=== PATIENT | male | born 1965 | race Caucasian/White ===

== ENCOUNTER 2017-07-19 16:08 | Emergency (ER) | payer BC, OTHER ==
--- NOTE | 2017-07-19 17:17 | UC ---
Respiratory Complaint HPI - HPI Summary HPI Summary: 51 yo male with cough and wheeze x 5 days some nasal congestion and post nasal drip as well ? fever chills no CP or SOB - History of Current Complaint Chief Complaint: UCRespiratory Stated Complaint: CHEST CONGESTION Time Seen by Provider: 07/19/17 17:06 Hx Obtained From: Patient Onset/Duration: Gradual Onset, Lasting Days Timing: Constant Severity Initially: Mild Severity Currently: Moderate Pain Intensity: 2 Pain Scale Used: 0-10 Numeric Character: Cough: Productive Aggravating Factors: Deep Breaths Alleviating Factors: Nothing Associated Signs And Symptoms: Positive: Wheezing, Nasal Congestion Related History: Similar Episode/Dx as: - bronchitis - Allergies/Home Medications Allergies/Adverse Reactions: Allergies Allergy/AdvReac Type Severity Reaction Status Date / Time No Known Allergies Allergy Verified 07/19/17 17:08 PMH/Surg Hx/FS Hx/Imm Hx Previously Healthy: Yes Cardiovascular History: Other Other Cardiovascular History: SVT Respiratory History: Bronchitis Neurological History: Other Other Neurological History: cluster CURRY - Surgical History Surgical History: Yes Surgery Procedure, Year, and Place: left ACL surgery - Family History Known Family History: Positive: Cardiac Disease, Hypertension - Social History Alcohol Use: None Alcohol Amount: x 6 months Substance Use Type: None Smoking Status (MU): Heavy Every Day Tobacco Smoker Type: Cigarettes Amount Used/How Often: 5 cig. day Review of Systems Constitutional: Negative Skin: Negative Eyes: Negative ENT: Nasal Discharge, Sinus Congestion Respiratory: Cough Cardiovascular: Negative Gastrointestinal: Negative Genitourinary: Negative Motor: Negative Neurovascular: Negative Musculoskeletal: Negative Neurological: Negative Psychological: Negative Is Patient Immunocompromised?: No All Other Systems Reviewed And Are Negative: Yes Physical Exam Triage Information Reviewed: Yes Appearance: Well-Appearing, No Pain Distress, Well-Nourished Vital Signs: Initial Vital Signs Temp 98.6 F 07/19/17 17:05 Pulse 72 07/19/17 17:05 Resp 16 07/19/17 17:05 BP 145/84 07/19/17 17:05 Pulse Ox 100 07/19/17 17:05 Vital Signs Reviewed: Yes Eyes: Positive: Conjunctiva Clear ENT: Positive: Hearing grossly normal, TMs normal. Negative: Nasal congestion, Nasal drainage, Trismus Neck: Positive: Supple, Nontender, No Lymphadenopathy Respiratory: Positive: No respiratory distress, No accessory muscle use, Wheezing Cardiovascular: Positive: RRR, No Murmur Musculoskeletal: Positive: ROM Intact, No Edema Neurological: Positive: Alert Psychological Exam: Normal Skin Exam: Normal UC Diagnostic Evaluation - Laboratory O2 Sat by Pulse Oximetry: 100 - n ormal/not hypoxic Respiratory Course/Dx - Differential Dx/Diagnosis Provider Diagnoses: acute bronchitis with bronchospasm Discharge - Discharge Plan Condition: Stable Disposition: HOME Prescriptions: Azithromycin TAB* [Zithromax TAB*] 250 mg PO DAILY #6 tab Benzonatate CAP* [Tessalon CAP*] 100 - 200 mg PO TID PRN #28 cap PRN Reason: Cough Patient Education Materials: Acute Bronchitis (ED), Bronchospasm (ED) Referrals: Greg Merrill MD [Primary Care Provider] - 4 Days (if not better) Additional Instructions: use inhaler as directed recheck for worsening symptoms recheck in about 4 days if not better
[2017-07-19] MEDS: Albuterol HFA INHALER* 8 gm MDI INH ONE (17:37)
[2017-07-19 17:44] VITALS: BP 145/84
== END 2017-07-19 17:48 | disposition home or self-care (01) ==
LOC: UCCORT 16:08
DX: J20.9 Acute bronchitis, unspecified (principal); F17.210 Nicotine dependence, cigarettes, uncomplicated
CPT/HCPCS: 99212; A9270-GY; G0463

== ENCOUNTER 2017-09-17 18:10 | Emergency (ER) | payer BC, OTHER ==
[2017-09-17 18:53] VITALS: BP 115/79
--- NOTE | 2017-09-17 21:00 | UC ---
Throat Pain/Nasal Sampson HPI - HPI Summary HPI Summary: ONE WEEK OF STUFFY NOSE, THREE DAYS OF WORSENING COUGH. YESTERDAY HAD BLOODY NOSE, RESOLVED TODAY. - History of Current Complaint Chief Complaint: UCRespiratory Stated Complaint: COUGH,CONGESTION Time Seen by Provider: 09/17/17 19:56 Hx Obtained From: Patient Onset/Duration: Gradual Onset, Lasting Days, Still Present Severity: Moderate Pain Intensity: 0 Pain Scale Used: 0-10 Numeric Cough: Nonproductive Associated Signs & Symptoms: Positive: Sinus Discomfort, Nasal Discharge - Epiglottits Risk Factors Epiglottis Risk Factors: Negative - Allergies/Home Medications Allergies/Adverse Reactions: Allergies Allergy/AdvReac Type Severity Reaction Status Date / Time No Known Allergies Allergy Verified 09/17/17 18:53 PMH/Surg Hx/FS Hx/Imm Hx Previously Healthy: Yes - Surgical History Surgical History: Yes Surgery Procedure, Year, and Place: left ACL surgery - Family History Known Family History: Positive: Cardiac Disease, Hypertension - Social History Occupation: Employed Full-time Lives: With Family Alcohol Use: None Alcohol Amount: x 6 months Substance Use Type: None Smoking Status (MU): Heavy Every Day Tobacco Smoker Type: Cigarettes Amount Used/How Often: 5 cig. day Cessation Counseling: Patient Advised to Stop Review of Systems Constitutional: Chills, Fatigue Skin: Negative Eyes: Negative ENT: Sore Throat, Nasal Discharge, Sinus Congestion, Sinus Pain/Tenderness Respiratory: Cough Cardiovascular: Negative Gastrointestinal: Negative Genitourinary: Negative Motor: Negative Neurovascular: Negative Musculoskeletal: Negative Neurological: Negative Psychological: Negative Is Patient Immunocompromised?: No All Other Systems Reviewed And Are Negative: Yes Physical Exam Triage Information Reviewed: Yes Appearance: No Pain Distress, Well-Nourished Vital Signs: Initial Vital Signs Temp 99.0 F 09/17/17 18:50 Pulse 66 09/17/17 18:50 Resp 17 09/17/17 18:50 BP 115/79 09/17/17 18:50 Pulse Ox 96 09/17/17 18:50 Vital Signs Reviewed: Yes Eye Exam: Normal ENT: Positive: Pharynx normal, Nasal congestion, TM bulging, TM dull Dental Exam: Normal Neck exam: Normal Neck: Positive: Supple, Nontender, No Lymphadenopathy Respiratory Exam: Other - COUGH Respiratory: Positive: Chest non-tender, Lungs clear, Normal breath sounds, No respiratory distress, No accessory muscle use Cardiovascular Exam: Normal Cardiovascular: Positive: RRR, No Murmur, Pulses Normal, Brisk Capillary Refill Abdominal Exam: Normal Abdomen Description: Positive: Nontender, No Organomegaly Musculoskeletal Exam: Normal Musculoskeletal: Positive: Strength Intact Neurological Exam: Normal Psychological Exam: Normal Skin Exam: Normal Throat Pain/Nasal Course/Dx - Differential Dx/Diagnosis Differential Diagnosis/HQI/PQRI: Pharyngitis, Sinusitis, Tonsillitis, URI Provider Diagnoses: SINUSITIS; BRONCHITIS Discharge - Discharge Plan Condition: Stable Disposition: HOME Prescriptions: Albuterol HFA INHALER* [Ventolin HFA Inhaler*] 1 - 2 puff INH Q6H PRN #1 mdi PRN Reason: Wheezing Benzonatate CAP* [Tessalon 100 MG CAP*] 100 mg PO TID PRN #12 cap PRN Reason: Cough DOXYcycline CAP(*) [DOXYcycline 100MG CAP(*)] 100 mg PO BID #20 cap Patient Education Materials: Sinusitis (ED), Acute Bronchitis (ED) Forms: *Work Release Referrals: Greg Merrill MD [Primary Care Provider] -
== END 2017-09-17 20:17 | disposition home or self-care (01) ==
LOC: UCCORT 18:10
DX: J32.9 Chronic sinusitis, unspecified (principal); J40 Bronchitis, not specified as acute or chronic; F17.210 Nicotine dependence, cigarettes, uncomplicated
CPT/HCPCS: 99212; G0463

== ENCOUNTER 2018-10-20 14:25 | Emergency (ER) | payer OTHER ==
[2018-10-20 15:00] VITALS: BP 123/70
--- NOTE | 2018-10-20 15:10 | ED ---
Throat Pain/Nasal Congestion - HPI Summary HPI Summary: 52 yr old with 2-3 days of sinus congestion, pressure, post nasal drip, coughing. Onset of symptoms 2-3 days ago. The patient complains of tightness in his chest with coughing episodes. He states in the past he has felt the same way when he has gotten upper respiratory infections. He denies fever, chills. He is coughing up yellow sputum. - History of Current Complaint Chief Complaint: UCGeneralIllness Time Seen by Provider: 10/20/18 14:55 - Allergies/Home Medications Allergies/Adverse Reactions: Allergies Allergy/AdvReac Type Severity Reaction Status Date / Time No Known Allergies Allergy Verified 09/17/17 18:53 Home Medications: Home Medications Ibuprofen TAB* [Advil TAB*] 400 mg PO Q6H PRN 10/20/18 [History Confirmed ] guaiFENesin ER TAB [Mucinex*] 1,200 mg PO BID PRN 10/20/18 [History Confirmed ] PMH/Surg Hx/FS Hx/Imm Hx Endocrine/Hematology History: Denies: Hx Diabetes, Hx Thyroid Disease Cardiovascular History: Reports: Hx Hypertension Respiratory History: Denies: Hx Asthma, Hx Chronic Obstructive Pulmonary Disease (COPD) - Surgical History Surgery Procedure, Year, and Place: left ACL surgery Infectious Disease History: No Infectious Disease History: Denies: Hx Hepatitis, History Other Infectious Disease, Traveled Outside the in Last 30 Days - Family History Known Family History: Positive: Cardiac Disease, Hypertension - Social History Alcohol Use: None Alcohol Amount: x 6 months Substance Use Type: Reports: None Smoking Status (MU): Heavy Every Day Tobacco Smoker Type: Cigarettes Amount Used/How Often: 1/2 pack/day Length of Time of Smoking/Using Tobacco: 30 yrs Review of Systems Constitutional: Negative Positive: Nasal Discharge, Other - sinus pressure, post nasal drip. Positive: Cough All Other Systems Reviewed And Are Negative: Yes Physical Exam Triage Information Reviewed: Yes Vital Signs On Initial Exam: Initial Vitals Temp Pulse Resp BP Pulse Ox 99.7 F 77 17 123/70 98 10/20/18 14:47 10/20/18 14:47 10/20/18 14:47 10/20/18 14:47 10/20/18 14:47 Vital Signs Reviewed: Yes Appearance: Positive: Well-Appearing, No Pain Distress Skin: Positive: Warm, Skin Color Reflects Adequate Perfusion Head/Face: Positive: Normal Head/Face Inspection Eyes: Positive: EOMI ENT: Positive: Normal ENT inspection, Nasal congestion, Nasal drainage, TMs normal, Hoarse voice - mild hoarse voice, Sinus tenderness Neck: Positive: Supple, Nontender Respiratory/Lung Sounds: Positive: Clear to Auscultation, Breath Sounds Present Cardiovascular: Positive: RRR. Negative: Murmur Abdomen Description: Negative: Distended Musculoskeletal: Positive: Strength/ROM Intact Neurological: Positive: Sensory/Motor Intact, Alert, Oriented to Person Place, Time, CN Intact II-III, Normal Gait, Speech Normal Psychiatric: Positive: Normal Diagnostics - Vital Signs Vital Signs Temp Pulse Resp BP Pulse Ox 10/20/18 14:47 99.7 F 77 17 123/70 98 - Laboratory Lab Statement: Any lab studies that have been ordered have been reviewed, and results considered in the medical decision making process. - Radiology PIPO Cam[facility] Chest Radiology Interpretation Completed By: Radiologist - lung nodule in base - EKG 10/20/18 Cardiac Rate: NL EKG Rhythm: Sinus Rhythm ST Segment: Normal Ectopy: None Re-Evaluation - Re-Evaluation First Eval Re-Evaluation Time: 16:00 Change: Improved - The patient reports relief of his symptoms with the duo neb given. He is feeling easier breathing, no more coughing at this point and the tightness is gone with the neb. EENT Course/Dx - Course Course Of Treatment: 52 yr old male feeling much better after his neb. he refuses to take steroids. He requests albuterol MDI, and antibiotics and work note. Dr Greg Merrill called to notify of the lung nodule. The patient is aware of his lung nodule and he will follow up with Dr Merrill for further work up tomorrow at his office. - Diagnoses Provider Diagnoses: Asthmatic bronchitis, Sinusitis, Lung nodule Discharge - Sign-Out/Discharge Documenting (check all that apply): Patient Departure All imaging exams completed and their final reports reviewed: No Studies - Discharge Plan Condition: Good Disposition: HOME Prescriptions: Albuterol HFA INHALER* [Ventolin HFA Inhaler*] 1 - 2 puff INH Q4H PRN #1 mdi PRN Reason: Cough Amoxicillin/Clavulanate TAB* [Augmentin TAB 875*] 875 mg PO BID #20 tab Patient Education Materials: Sinusitis (ED), Acute Bronchitis (ED), Pulmonary Nodules (ED) Referrals: Greg Merrill MD [Primary Care Provider] - 1 Day Additional Instructions: be sure to see Dr Merrill for follow up for your lung nodule as soon as possible. - Billing Disposition and Condition Condition: GOOD Disposition: Home
[2018-10-20] MEDS: Albuterol/Ipratropium NEB.SOL* Albuterol 2.5 MG/Ipratropium 0.5 MG 3 ML INH ONE (15:20)
[2018-10-20] MEDS: predniSONE TAB* 20 MG PO ONE (15:41)
--- NOTE | 2018-10-20 18:01 | ED ---
Re-Evaluation - Re-Evaluation First Eval Re-Evaluation Time: 16:00 Change: Improved - The patient reports relief of his symptoms with the duo neb given. He is feeling easier breathing, no more coughing at this point and the tightness is gone with the neb. Course/Dx - Course Course Of Treatment: 52 yr old male feeling much better after his neb. he refuses to take steroids. He requests albuterol MDI, and antibiotics and work note. Dr Greg Merrill called to notify of the lung nodule. The patient is aware of his lung nodule and he will follow up with Dr Merrill for further work up tomorrow at his office. - Diagnoses Provider Diagnoses: Asthmatic bronchitis, Sinusitis, Lung nodule Discharge - Sign-Out/Discharge Documenting (check all that apply): Patient Departure All imaging exams completed and their final reports reviewed: Yes - Discharge Plan Condition: Good Disposition: HOME Prescriptions: Albuterol HFA INHALER* [Ventolin HFA Inhaler*] 1 - 2 puff INH Q4H PRN #1 mdi PRN Reason: Cough Amoxicillin/Clavulanate TAB* [Augmentin TAB 875*] 875 mg PO BID #20 tab Patient Education Materials: Sinusitis (ED), Acute Bronchitis (ED), Pulmonary Nodules (ED) Forms: *Work Release Referrals: Greg Merrill MD [Primary Care Provider] - 1 Day Additional Instructions: be sure to see Dr Merrill for follow up for your lung nodule as soon as possible. - Billing Disposition and Condition Condition: GOOD Disposition: Home
== END 2018-10-20 16:42 | disposition home or self-care (01) ==
LOC: UCCORT 14:25
DX: J45.909 Unspecified asthma, uncomplicated (principal); J32.9 Chronic sinusitis, unspecified; R91.1 Solitary pulmonary nodule; I10 Essential (primary) hypertension; F17.210 Nicotine dependence, cigarettes, uncomplicated
CPT/HCPCS: 71046; 93005; 99212; A9270-GY; G0463; J7512

== ENCOUNTER 2019-01-13 19:43 | Emergency (ER) | payer OTHER | END 2019-01-13 20:29 | disposition left against medical advice (07) | LOC: UCCORT 19:43 | DX: Z53.21 Procedure and treatment not carried out due to patient leaving prior to being seen by health care provider (principal) ==

== ENCOUNTER 2019-01-14 11:04 | Emergency (ER) | payer OTHER ==
[2019-01-14 12:37] VITALS: BP 129/71
--- NOTE | 2019-01-14 12:54 | UC ---
Respiratory Complaint HPI - HPI Summary HPI Summary: Pt c/o cough, wheezing, fever body aches X 5 days. Pt has history of "spots" on lungs and is being watched by PCP Dr. Merrill. - History of Current Complaint Chief Complaint: UCRespiratory Stated Complaint: COUGH Time Seen by Provider: 01/14/19 12:31 Hx Obtained From: Patient Onset/Duration: Gradual Onset, Lasting Days, Still Present Timing: Constant Severity Initially: Mild Severity Currently: Moderate Pain Intensity: 0 Character: Cough: Productive Aggravating Factors: Recumbent Position Associated Signs And Symptoms: Positive: Wheezing, URI, Nasal Congestion - Risk Factors Pulmonary Embolism Risk Factors: Smoking Cardiac Risk Factors: Smoking Tuberculosis Risk Factors: Smoking - Allergies/Home Medications Allergies/Adverse Reactions: Allergies Allergy/AdvReac Type Severity Reaction Status Date / Time No Known Allergies Allergy Verified 01/14/19 12:35 PMH/Surg Hx/FS Hx/Imm Hx Previously Healthy: Yes Cardiovascular History: Hypertension - Surgical History Surgical History: Yes Surgery Procedure, Year, and Place: left ACL surgery - Family History Known Family History: Positive: Cardiac Disease, Hypertension - Social History Occupation: Employed Full-time Lives: With Family Alcohol Use: None Alcohol Amount: x 6 months Substance Use Type: None Smoking Status (MU): Heavy Every Day Tobacco Smoker Type: Cigarettes Amount Used/How Often: 1/2 pack/day Length of Time of Smoking/Using Tobacco: 30 yrs Have You Smoked in the Last Year: Yes - Immunization History Vaccination Up to Date: No Review of Systems All Other Systems Reviewed And Are Negative: Yes Constitutional: Positive: Fever, Chills, Fatigue Skin: Positive: Negative Eyes: Positive: Negative ENT: Positive: Sinus Congestion Respiratory: Positive: Shortness Of Breath, Cough Cardiovascular: Positive: Negative Gastrointestinal: Positive: Negative Genitourinary: Positive: Negative Motor: Positive: Negative Neurovascular: Positive: Negative Musculoskeletal: Positive: Myalgia Neurological: Positive: Negative Psychological: Positive: Negative Is Patient Immunocompromised?: No Physical Exam Triage Information Reviewed: Yes Appearance: Ill-Appearing, Thin Vital Signs: Initial Vital Signs Temp 98.9 F 01/14/19 12:29 Pulse 74 01/14/19 12:29 Resp 18 01/14/19 12:29 BP 129/71 01/14/19 12:29 Pulse Ox 100 01/14/19 12:29 Vital Signs Reviewed: Yes Eye Exam: Normal ENT: Positive: Nasal congestion Dental Exam: Normal Neck exam: Normal Respiratory: Positive: Decreased breath sounds, Wheezing Cardiovascular Exam: Normal Musculoskeletal Exam: Normal Neurological Exam: Normal Psychological Exam: Normal Skin Exam: Normal Respiratory Course/Dx - Differential Dx/Diagnosis Differential Diagnosis/HQI/PQRI: Bronchitis, Exacerbation Of COPD, Influenza Provider Diagnosis: Pneumonia Discharge - Sign-Out/Discharge Documenting (check all that apply): Patient Departure All imaging exams completed and their final reports reviewed: No Studies - Discharge Plan Condition: Stable Disposition: HOME Prescriptions: Albuterol HFA INHALER* [Ventolin HFA Inhaler*] 1 - 2 puff INH Q4H PRN #1 mdi PRN Reason: Sob/Wheezing Azithromycin TAB* [Zithromax TAB (Z-KAROLYN) 250 mg #6 tabs] 2 tab PO .TODAY, THEN 1 DAILY #1 karolyn predniSONE TAB* [Deltasone 20 MG TAB*] 20 mg PO DAILY #4 tab Patient Education Materials: Pneumonia (ED) Referrals: Greg Merrill MD [Primary Care Provider] - If Needed - Billing Disposition and Condition Condition: STABLE Disposition: Home - Attestation Statements Provider Attestation: I was available for consult. This patient was seen by the MARIO. The patient was not presented to, seen by, or examined by me. EK
== END 2019-01-14 13:10 | disposition home or self-care (01) ==
LOC: UCCORT 11:04
DX: J18.9 Pneumonia, unspecified organism (principal); I10 Essential (primary) hypertension; F17.210 Nicotine dependence, cigarettes, uncomplicated
CPT/HCPCS: 99211; G0463

== ENCOUNTER 2019-07-02 09:43 | Emergency (ER) | payer OTHER ==
[2019-07-02 10:29] VITALS: BP 114/70
--- NOTE | 2019-07-02 10:42 | UC ---
Respiratory Complaint HPI - HPI Summary HPI Summary: Pt presents with c/o nasao congestion, cough, sob, wheezing, X 7 days. Pt is a current everyday smoker. - History of Current Complaint Chief Complaint: UCRespiratory Stated Complaint: CONGESTION COUGH SORE THROAT Time Seen by Provider: 07/02/19 10:15 Hx Obtained From: Patient Onset/Duration: Gradual Onset, Lasting Days, Still Present, Worse Since Timing: Constant Severity Initially: Mild Severity Currently: Moderate Pain Intensity: 0 Character: Cough: Productive Aggravating Factors: Exertion, Deep Breaths, Recumbent Position Alleviating Factors: Nothing Associated Signs And Symptoms: Positive: Wheezing, URI, Nasal Congestion - Risk Factors Pulmonary Embolism Risk Factors: Smoking Cardiac Risk Factors: Smoking Tuberculosis Risk Factors: Smoking - Allergies/Home Medications Allergies/Adverse Reactions: Allergies Allergy/AdvReac Type Severity Reaction Status Date / Time No Known Allergies Allergy Verified 07/02/19 10:25 Home Medications: Home Medications Fluticasone NASAL SPRAY 50MCG* [Flonase NASAL SPRAY 50MCG*] 1 spray BOTH NARES DAILY PRN 07/02/19 [History Confirmed 07/02/19] PMH/Surg Hx/FS Hx/Imm Hx Previously Healthy: Yes Cardiovascular History: Hypertension - Surgical History Surgical History: Yes Surgery Procedure, Year, and Place: left ACL surgery - Family History Known Family History: Positive: Cardiac Disease, Hypertension - Social History Occupation: Employed Full-time Lives: With Family Alcohol Use: None Alcohol Amount: x 6 months Substance Use Type: None Smoking Status (MU): Heavy Every Day Tobacco Smoker Type: Cigarettes Amount Used/How Often: 1 pack a day Length of Time of Smoking/Using Tobacco: 30 yrs Have You Smoked in the Last Year: Yes - Immunization History Vaccination Up to Date: No Review of Systems All Other Systems Reviewed And Are Negative: Yes Constitutional: Positive: Chills, Fatigue Skin: Positive: Negative Eyes: Positive: Negative ENT: Positive: Sinus Congestion Respiratory: Positive: Shortness Of Breath, Cough Cardiovascular: Positive: Negative Gastrointestinal: Positive: Negative Genitourinary: Positive: Negative Motor: Positive: Negative Neurovascular: Positive: Negative Musculoskeletal: Positive: Myalgia Neurological: Positive: Negative Psychological: Positive: Negative Is Patient Immunocompromised?: No Physical Exam Triage Information Reviewed: Yes Appearance: Ill-Appearing Vital Signs: Initial Vital Signs Temp 98.8 F 07/02/19 10:27 Pulse 73 07/02/19 10:27 Resp 20 07/02/19 10:27 BP 114/70 07/02/19 10:27 Pulse Ox 97 07/02/19 10:27 Vital Signs Reviewed: Yes Eye Exam: Normal ENT: Positive: Nasal congestion Dental Exam: Normal Neck exam: Normal Respiratory: Positive: Wheezing Cardiovascular Exam: Normal Musculoskeletal Exam: Normal Psychological Exam: Normal Skin Exam: Normal Respiratory Course/Dx - Differential Dx/Diagnosis Differential Diagnosis/HQI/PQRI: Bronchitis, Exacerbation Of COPD Provider Diagnosis: Pneumonia Discharge ED - Sign-Out/Discharge Documenting (check all that apply): Patient Departure All imaging exams completed and their final reports reviewed: No Studies - Discharge Plan Condition: Stable Disposition: HOME Prescriptions: Azithromycin TAB* [Zithromax TAB (Z-KAROLYN) 250 mg #6 tabs] 2 tab PO .TODAY, THEN 1 DAILY #1 karolyn Benzonatate CAP* [Tessalon 100 MG CAP*] 200 mg PO Q8H PRN #30 cap PRN Reason: Cough Cetirizine* [ZyrTEC 10 MG TAB*] 10 mg PO DAILY #10 tab predniSONE TAB* [Deltasone 10 MG TAB*] 30 mg PO DAILY #12 tab Patient Education Materials: Pneumonia (ED) Referrals: Greg Merrill MD [Primary Care Provider] - If Needed - Billing Disposition and Condition Condition: STABLE Disposition: Home
== END 2019-07-02 10:56 | disposition home or self-care (01) ==
LOC: UCCORT 09:43
DX: J18.9 Pneumonia, unspecified organism (principal); I10 Essential (primary) hypertension; F17.210 Nicotine dependence, cigarettes, uncomplicated
CPT/HCPCS: 99212; G0463

== ENCOUNTER 2019-10-12 13:35 | Emergency (ER) | payer OTHER ==
[2019-10-12 15:51] VITALS: BP 132/87
--- NOTE | 2019-10-12 16:11 | UC ---
Throat Pain/Nasal Sampson HPI - HPI Summary HPI Summary: Patient is a 53-year-old male presenting with nonproductive cough 3 days. Patient states cough is worsening. States this happens to him every year and is not treated he gets pneumonia. Notes wheezing and shortness of breath mainly on exertion. States wheezing worse at night. Notes mild nasal congestion and sore throat with coughing. Denies fever and chills. Denies nausea and vomiting. Denies decreased appetite and fluid intake. Patient is a heavy every day smoker. - History of Current Complaint Chief Complaint: UCGeneralIllness Stated Complaint: COUGH, COLD SYMPTOMS Hx Obtained From: Patient Onset/Duration: Gradual Onset, Lasting Days Pain Intensity: 0 - Allergies/Home Medications Allergies/Adverse Reactions: Allergies Allergy/AdvReac Type Severity Reaction Status Date / Time No Known Allergies Allergy Verified 10/12/19 15:44 Home Medications: Home Medications guaiFENesin [Mucinex] 1 dose PO ONCE 10/12/19 [History Confirmed 10/12/19] PMH/Surg Hx/FS Hx/Imm Hx - Surgical History Surgical History: Yes Surgery Procedure, Year, and Place: left ACL surgery - Family History Known Family History: Positive: Cardiac Disease, Hypertension - Social History Alcohol Use: None Alcohol Amount: x 6 months Substance Use Type: None Smoking Status (MU): Heavy Every Day Tobacco Smoker Type: Cigarettes Amount Used/How Often: 1/2 ppd Length of Time of Smoking/Using Tobacco: 30 yrs Have You Smoked in the Last Year: Yes Household Exposure Type: Cigarettes Cessation Counseling: Counseled 10+ Min - Immunization History Vaccination Up to Date: No Review of Systems All Other Systems Reviewed And Are Negative: Yes Constitutional: Positive: Negative. Negative: Fever, Chills ENT: Positive: Sore Throat - with coughing, Nasal Discharge, Sinus Congestion. Negative: Ear Ache Respiratory: Positive: Shortness Of Breath - and wheezing, Cough - nonproductive Cardiovascular: Positive: Negative Gastrointestinal: Positive: Negative. Negative: Vomiting, Nausea Musculoskeletal: Positive: Negative Neurological: Positive: Negative Physical Exam Triage Information Reviewed: Yes Appearance: No Pain Distress, Well-Nourished, Ill-Appearing Vital Signs: Initial Vital Signs Temp 99.4 F 10/12/19 15:45 Pulse 75 10/12/19 15:45 Resp 16 10/12/19 15:45 BP 132/87 10/12/19 15:45 Pulse Ox 99 10/12/19 15:45 Vital Signs Reviewed: Yes Eyes: Positive: Conjunctiva Clear ENT: Positive: Hearing grossly normal, Pharyngeal erythema, Nasal congestion, Nasal drainage - PND, TMs normal. Negative: Tonsillar swelling, Tonsillar exudate Neck exam: Normal Neck: Positive: Supple, Nontender, No Lymphadenopathy Respiratory: Positive: No respiratory distress, No accessory muscle use, Rhonchi - diffuse rhonchi throughout all lung bautista. Negative: Crackles, Stridor, Wheezing Cardiovascular Exam: Normal Cardiovascular: Positive: RRR Neurological: Positive: Alert Psychological: Positive: Age Appropriate Behavior Skin Exam: Normal Diagnostics - Radiology chest Radiology Interpretation Completed By: Radiologist Summary of Radiographic Findings: IMPRESSION: Hyperinflated lung bautista without evidence of pneumonia. Throat Pain/Nasal Course/Dx - Course Course Of Treatment: 53yo male presenting with wheezing, increased sob, cough, and congestion x3 days. VS WNL. CXR revealed hyper inflated lungs without sign of pneumonia. Patient with diffuse rhonchi throughout lung bautista on auscultation. H/o 1/2ppd for 30 years. I treated patient with doxycycline and prednisone based on history and PE findings. I counseled patient on smoking cessation for ~20 minutes after he voiced desire to quit. I instructed patient to follow up with pcp within the next 2 weeks for reevaluation of symptoms and to further discuss smoking cessation. Patient voiced understanding and agreed with treatment plan. - Differential Dx/Diagnosis Provider Diagnosis: Acute bronchitis, Bronchospasm, Encounter for smoking cessation counseling Discharge ED - Sign-Out/Discharge Documenting (check all that apply): Patient Departure All imaging exams completed and their final reports reviewed: Yes - Discharge Plan Condition: Stable Disposition: HOME Prescriptions: DOXYcycline CAP(*) [DOXYcycline 100MG CAP(*)] 100 mg PO BID #14 cap predniSONE 10 mg TAB [Deltasone 10 MG TAB*] 30 mg PO DAILY #15 tab Patient Education Materials: How to Stop Smoking (ED), Acute Bronchitis (ED), Bronchospasm (ED) Referrals: Greg Merrill MD [Primary Care Provider] - If Needed Additional Instructions: Take doxycycline and prednisone as prescribed. You may use nasal saline spray or Flonase to help relieve congestion. A humidifer or hot steam from the shower may also help alleviate symptoms. Refrain from smoking while symptoms are present. Get plenty of rest and increase your fluid intake. Follow up with your primary care provider within the next 2 weeks for your annual physical and to further discuss smoking cessation. - Billing Disposition and Condition Condition: STABLE Disposition: Home - Attestation Statements Provider Attestation: Patient not seen by me I was available for consult Chart reviewed JANETH
== END 2019-10-12 17:15 | disposition home or self-care (01) ==
LOC: UCCORT 13:35
DX: J20.9 Acute bronchitis, unspecified (principal); F17.210 Nicotine dependence, cigarettes, uncomplicated; Z71.89 Other specified counseling
CPT/HCPCS: 71046; 99212; G0463